=== PATIENT | male | born 1985 | race Caucasian/White ===

== ENCOUNTER 2020-12-22 19:52 | Emergency (ER) | payer MEDICAID ==
[2020-12-22] MEDS ORDERED: Cephalexin 500 MG Cap PO STA (20:21)
[2020-12-22] MEDS ORDERED: Lidocaine/EPINEPHrine/Tetracaine Soln 5 ML Each TOP STA (20:21)
--- NOTE | 2020-12-22 20:55 | EDM.PDOC ---
ED HPI GENERAL MEDICAL PROBLEM - General Chief Complaint: Laceration Stated Complaint: PATIENT HAS SERIOUS LACERATION ON THEIR FINGER Time Seen by Provider: 12/22/20 20:00 Source of Information: Reports: Patient History Limitations: Reports: No Limitations - History of Present Illness INITIAL COMMENTS - FREE TEXT/NARRATIVE: Patient presented to the ED because of a left finger injury. He was cutting a wood with a circular saw and accidentally cut his left mid finger. There is 2.5 cm laceration over the left finger tip. He is able to flext and extend the injured finger without any difficulty. Left Finger-Middle Pain Score (Numeric/FACES): 9 - Related Data Allergies Allergy/AdvReac Type Severity Reaction Status Date / Time cefaclor [From Ceclor] Allergy Rash Verified 12/22/20 19:59 minocycline Allergy Hives Verified 12/22/20 19:59 Penicillins Allergy Rash Verified 12/22/20 19:59 sulfamethoxazole Allergy Rash Verified 12/22/20 19:59 [From Bactrim] trimethoprim [From Bactrim] Allergy Rash Verified 12/22/20 19:59 Home Meds: Home Meds Escitalopram Oxalate [Lexapro] 20 mg PO BEDTIME 12/22/20 [History] Melatonin 5 mg PO BEDTIME 12/22/20 [History] Pantoprazole Sodium [Protonix] 40 mg PO BEDTIME 12/22/20 [History] cephALEXin [Keflex] 500 mg PO Q8H #30 cap 12/22/20 [Rx] Past Medical History Gastrointestinal History: Reports: GERD Social & Family History - Caffeine Use Caffeine Use: Reports: Coffee, Energy Drinks - Alcohol Use Date of Last Drink: 12/21/20 - Recreational Drug Use Recreational Drug Use: No ED ROS GENERAL - Review of Systems Review Of Systems: See Below Constitutional: Reports: No Symptoms HEENT: Reports: No Symptoms Respiratory: Reports: No Symptoms Cardiovascular: Reports: No Symptoms Endocrine: Reports: No Symptoms GI/Abdominal: Reports: No Symptoms : Reports: No Symptoms Musculoskeletal: Reports: No Symptoms Skin: Reports: Wound Neurological: Reports: No Symptoms Psychiatric: Reports: No Symptoms ED EXAM, SKIN/RASH Exam: See Below Exam Limited By: No Limitations General Appearance: Alert, No Apparent Distress Ears: Normal External Exam, Normal Canal Nose: Normal Inspection, Normal Mucosa, No Blood Throat/Mouth: Normal Inspection Head: Atraumatic, Normocephalic Neck: Normal Inspection, Supple, Non-Tender, Full Range of Motion Respiratory/Chest: No Respiratory Distress, Lungs Clear, Normal Breath Sounds Cardiovascular: Normal Peripheral Pulses, Regular Rate, Rhythm, No Edema, No Gallop GI/Abdominal: Normal Bowel Sounds, Soft, Non-Tender, No Organomegaly, No Distention, No Abnormal Bruit, No Mass Back Exam: Normal Inspection, Full Range of Motion Extremities: Normal Inspection, Normal Range of Motion, Non-Tender, Other (2.5 cm laceration l;eft mid finger tip) Neurological: Alert, Oriented, CN II-XII Intact, Normal Cognition ED SKIN PROCEDURES - Laceration/Wound Repair Left Digit - 3rd (Middle) Appearance: Superficial, Clean Distal NVT: Neuro & Vascular Intact Anesthetic Type: Local Local Anesthesia - Lidocaine (Xylocaine): 2% Plain Local Anesthetic Volume: 2cc Skin Prep: Chlorhexidine (Hibiciens) Exploration/Debridement/Repair: Wound Explored Closed with: Sutures Lac/Wound length In cm: 2.5 Suture Size: 3-0 # of Sutures: 7 Suture Type: Other (polyglactin) Course - Vital Signs Text/Narrative:: Xray was reviewed with patient and 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 Start on keflex Last Recorded V/S: Last Vital Signs Temp 36.3 C 12/22/20 21:30 Pulse 67 12/22/20 21:30 Resp 18 12/22/20 21:30 BP 152/94 H 12/22/20 21:30 Pulse Ox 97 12/22/20 21:30 - Orders/Labs/Meds Meds: Medications Discontinued Medications Generic Name Dose Route Start Last Admin Trade Name Andersonq PRN Reason Stop Dose Admin Cephalexin 500 mg 12/22/20 20:21 12/22/20 20:25 Cephalexin 500 Mg Cap PO 12/22/20 20:22 500 mg NOW STA Administration Lidocaine/Tetracaine 5 ml 12/22/20 20:21 12/22/20 20:26 Lidocaine/Epinephrine/Tetracaine Soln 5 Ml Each TOP 12/22/20 20:22 5 ml NOW STA Administration Departure - Departure Time of Disposition: 22:00 Disposition: Home, Self-Care 01 Condition: Good Clinical Impression: Finger laceration, Open fracture of tuft of distal phalanx of finger - Discharge Information Prescriptions: cephALEXin [Keflex] 500 mg PO Q8H #30 cap Instructions: Finger Fracture, Adult, [id number], Laceration Care, Adult Referrals: PCP,None [Primary Care Provider] - Forms: ED Department Discharge Additional Instructions: Please read discharge instructions on finger laceration and tuft fracture Keflex 500 mg 3 times daily for 10 days Ibuprofen 800 mg with tylenol 1000 mg every 8 hours as needed for pain The suture that was used is an absorbable one. It will eventually fall off and no need to remove it We will call you tomorrow if there is any changes on the xray reading Follow up with ortho this week Sepsis Event Note (ED) - Evaluation Sepsis Screening Result: No Definite Risk
--- NOTE | 2020-12-23 13:15 | CR ---
INDICATION: Left middle finger injury with miter saw. LEFT THIRD DIGIT [id number]: Three views of the left third finger reveal evidence of soft tissue laceration at the distal phalanx of the finger with comminuted fracture of the ungual tuft and distal shaft of the distal phalanx. Volar deviation of the large chip fracture fragment and smaller fracture fragment noted with the most severe volar deviation of approximately 6 mm distally. No other bone or joint abnormality was seen. FADUMOD
== END 2020-12-22 20:50 | disposition home or self-care (01) ==
LOC: FB.ED 19:52
DX: S62.633B Displaced fracture of distal phalanx of left middle finger, initial encounter for open fracture (principal); K21.9 Gastro-esophageal reflux disease without esophagitis; Z88.1 Allergy status to other antibiotic agents; Z88.0 Allergy status to penicillin; Z79.899 Other long term (current) drug therapy; W27.0XXA Contact with workbench tool, initial encounter
CPT/HCPCS: 12001; 73140; 99283; A9270